=== PATIENT | female | born 1970 | race Hispanic/Latino ===

== ENCOUNTER → 2018-03-04 | Outpatient (CLI) | payer OTHER ==
[~2018-03-04] MED LIST: ADV250 IH; ALBU8.5H8 IH; BUSP10TA3 PO; FERR-82 PO; FLUT16H NASAL; LEVE1000 PO; LORA2TAB2 PO; METF10004 PO; MONT10TA24 PO; OMEP20TA25 PO; PRAV20TA4 PO; PREM625 PO; QUET150T PO; SENN-183 PO; SERT100T12 PO; TIOT18CA3 IH; TOPI50TA PO; TYL3 PO; VALS160T29 PO
== END | disposition home or self-care (01) ==
LOC: RAH 09:10
PROVIDERS: ATTEND Internal Medicine
DX: M19.012 Primary osteoarthritis, left shoulder (principal)
CPT/HCPCS: 73030

== ENCOUNTER → 2019-05-12 | Outpatient (CLI) | payer OTHER ==
[~2019-05-12] MED LIST changes: +ACET-48 PO; +ASPI-1012 PO; +BENZ-51 PO; +CANA300T PO; +CHOL100040 PO; +DILT120T PO; +GABA-529 PO; -LEVE1000 PO; +METF-446 PO; -METF10004 PO; -OMEP20TA25 PO; +OMEP40CA13 PO; +PHEN100C9 PO; -PREM625 PO; -QUET150T PO; +QUET200T29 PO; +TOPI100T37 PO; -TOPI50TA PO
== END | disposition home or self-care (01) ==
LOC: SHCH 14:02
PROVIDERS: ATTEND Internal Medicine Cardiovascular Disease
DX: I47.1 Supraventricular tachycardia (principal)
CPT/HCPCS: 93306

== ENCOUNTER → 2019-11-02 | Outpatient (CLI) | payer OTHER ==
[~2019-11-02] MED LIST changes: -ACET-48 PO; +ACET-49 PO; -MONT10TA24 PO; +MONT10TA26 PO
== END | disposition home or self-care (01) ==
LOC: RAH 07:24
PROVIDERS: ATTEND Surgery
DX: K76.0 Fatty (change of) liver, not elsewhere classified (principal); R10.9 Unspecified abdominal pain; K43.9 Ventral hernia without obstruction or gangrene
CPT/HCPCS: 76700

== ENCOUNTER 2020-05-03 06:18 | Day surgery (SDC) | payer OTHER ==
[2020-04-29 11:19] LABS: BASOPHILS % (AUTO) 0.3 % (0.0-5.0); EOSINOPHILS % (AUTO) 2.5 % (0.0-8.0); LYMPHOCYTES % (AUTO) 30.4 % (21.0-51.0); MEAN CORPUSCULAR HGB CONC 30.3 g/dL (32.0-36.0); MEAN CORPUSCULAR VOLUME 75.9 fL (79-99); MONOCYTES % (AUTO) 5.4 % (3.0-13.0); NEUTROPHILS % (AUTO) 61.1 % (40.0-77.0); PLATELET COUNT (AUTO) 317 K/uL (130-400); RED BLOOD CELL COUNT(AUTO) 4.48 MIL/uL (4.00-5.50); RED CELL DISTRIBUTION WIDTH 16.1 % (11.0-15.5); WHITE BLOOD COUNT (AUTO) 6.3 K/uL (4.8-10.8)
[2020-04-29 11:21] LABS: CREATININE 0.6 mg/dL (0.5-1.5); POTASSIUM 4.2 mmol/L (3.5-5.1)
[2020-04-29 15:20] VITALS: BP 147/66
[2020-05-03] VITALS (15 sets, daily range): BP systolic 93–116; BP diastolic 49–64
[~2020-05-03] VITALS: Ht 149.9 cm; Wt 63.7 kg
[~2020-05-03 06:18] MED LIST changes: -BENZ-51 PO; -BUSP10TA3 PO; +BUSP5TAB3 PO; +CEFAZOLIN SODIUM 1 GM VIAL IVP SCH; +CETI10TA57 PO; -CHOL100040 PO; -DILT120T PO; +DILT180C89 PO; -FERR-82 PO; -GABA-529 PO; +LACT10SO62 PO; -LORA2TAB2 PO; +MAGNESIUM PO; +METO-408 PO; -MONT10TA26 PO; +PHEN100C23 PO; -PHEN100C9 PO; -PRAV20TA4 PO; +PRAV40TA3 PO; +QUET100T33 PO; -QUET200T29 PO; -SENN-183 PO; -SERT100T12 PO; +SIME80TA12 PO; +SODIUM CHLORIDE 0.9% 500ML 500 ML IV SCH; -TIOT18CA3 IH; -TOPI100T37 PO; +TOPI200T16 PO; -TYL3 PO
[2020-05-03] MEDS ORDERED: SODIUM CHLORIDE 0.9% 1000ML 1,000 ML IV ONE (07:30)
[2020-05-03] MEDS ORDERED: METO-408 PO (07:39)
[2020-05-03] MEDS ORDERED: FENTANYL CITRATE PF 50 MCG/1 ML 2ML VIAL ONE (07:56)
[2020-05-03] MEDS ORDERED: SUCCINYLCHOLINE 200MG/10ML SYR ONE (07:56)
[2020-05-03] MEDS ORDERED: PROPOFOL 10 MG/ML 20ML VIAL IV ONE (07:56)
[2020-05-03] MEDS ORDERED: MIDAZOLAM HCL 1 MG/ML 2ML VIAL ONE (07:56)
[2020-05-03] MEDS ORDERED: LIDOCAINE PF 2% 5ML ABBOJECT ONE (07:56)
[2020-05-03] MEDS ORDERED: ROCURONIUM 10MG/1ML SYR 10 MG/ML ML ONE (08:06)
[2020-05-03] MEDS ORDERED: PHENYLEPHRINE HCL 10 MG/ML 1ML VIAL IV ONE (08:12)
[2020-05-03] MEDS ORDERED: GLYCOPYRROLATE 1 MG/5 ML SYRINGE ONE (08:13)
[2020-05-03] MEDS ORDERED: NEOSTIGMINE 5MG/5ML SYR IV ONE (08:14)
[2020-05-03] MEDS ORDERED: ONDANSETRON HCL 4 MG/2 ML VIAL ONE (08:14)
[2020-05-03] MEDS ORDERED: EPHEDRINE SULFATE 50 MG/ML AMPULE ONE (08:18)
[2020-05-03] MEDS ORDERED: MEPERIDINE-PF 25 MG/ML SYG ONE ×2 (09:12→09:24)
== END 2020-05-03 11:06 | disposition home or self-care (01) ==
LOC: DAH 06:18
PROVIDERS: ATTEND Surgery
DX: S31.109A Unspecified open wound of abdominal wall, unspecified quadrant without penetration into peritoneal cavity, initial encounter (principal); J45.909 Unspecified asthma, uncomplicated; G47.30 Sleep apnea, unspecified; I10 Essential (primary) hypertension; E78.5 Hyperlipidemia, unspecified; K21.9 Gastro-esophageal reflux disease without esophagitis; E11.9 Type 2 diabetes mellitus without complications; F32.9 Major depressive disorder, single episode, unspecified; Z98.890 Other specified postprocedural states; X58.XXXA Exposure to other specified factors, initial encounter; Y93.89 Activity, other specified; Y92.89 Other specified places as the place of occurrence of the external cause; Y99.8 Other external cause status
CPT/HCPCS: 10061; 36415; 80048; 82948; 85025; A4215; A4221; A4222; A4223; A4452; A4663; A4930; C9803; J0330; J0690; J2001; J2175 ×2; J2250; J2370; J2405; J2704; J2710; J3010; J3490 ×2; J7030 ×2; U0003

== ENCOUNTER → 2021-01-06 | Outpatient (CLI) | payer OTHER ==
[~2021-01-06] MED LIST changes: -CEFAZOLIN SODIUM 1 GM VIAL IVP SCH; -SODIUM CHLORIDE 0.9% 500ML 500 ML IV SCH
== END | disposition home or self-care (01) ==
LOC: RAH 09:17
PROVIDERS: ATTEND Internal Medicine
DX: M25.561 Pain in right knee (principal); M79.89 Other specified soft tissue disorders; M25.461 Effusion, right knee
CPT/HCPCS: 73560

== ENCOUNTER → 2021-01-16 | Outpatient (CLI) | payer OTHER | END | disposition home or self-care (01) | LOC: RAH 13:20 | PROVIDERS: ATTEND Orthopaedic Surgery | DX: M65.261 Calcific tendinitis, right lower leg (principal); M25.461 Effusion, right knee; Z96.651 Presence of right artificial knee joint | CPT/HCPCS: 73700 ==

== ENCOUNTER 2021-02-24 06:40 | Day surgery (SDC) | payer OTHER ==
[2021-02-20 08:50] LABS: BASOPHILS % (AUTO) 0.3 % (0.0-5.0); EOSINOPHILS % (AUTO) 2.3 % (0.0-8.0); HEMATOCRIT 27.4 % (36-48); LYMPHOCYTES % (AUTO) 30.7 % (21.0-51.0); MEAN CORPUSCULAR HEMOGLOBIN 28.4 pg (27.0-33.0); MEAN CORPUSCULAR HGB CONC 29.9 g/dL (32.0-36.0); MEAN CORPUSCULAR VOLUME 94.8 fL (79-99); MONOCYTES % (AUTO) 4.5 % (3.0-13.0); NEUTROPHILS % (AUTO) 61.6 % (40.0-77.0); PLATELET COUNT (AUTO) 410 K/uL (130-400); RED BLOOD CELL COUNT(AUTO) 2.89 MIL/uL (4.00-5.50); RED CELL DISTRIBUTION WIDTH 15.2 % (11.0-15.5); WHITE BLOOD COUNT (AUTO) 6.9 K/uL (4.8-10.8)
[2021-02-20 09:01] LABS: CREATININE 0.7 mg/dL (0.5-1.5)
[2021-02-20 11:11] VITALS: BP 97/54
[~2021-02-24] VITALS: Ht 149.9 cm; Wt 63.1 kg
[2021-02-24] VITALS (16 sets, daily range): BP systolic 89–123; BP diastolic 44–62
[~2021-02-24 06:40] MED LIST changes: +CEFAZOLIN SODIUM 1 GM VIAL IVP SCH; -CETI10TA57 PO; -DILT180C89 PO; +FERS325 PO; -LACT10SO62 PO; -MAGNESIUM PO; -OMEP40CA13 PO; +OMEP40CA21 PO; -QUET100T33 PO; +SERT-438 PO; +SUCR1TAB2 PO; +TOPI100T37 PO; -TOPI200T16 PO
[2021-02-24] MEDS ORDERED: NACL 0.9% 1000ML 1,000 ML IV ONE (06:54)
[2021-02-24] MEDS ORDERED: DEXAMETHASONE SOD PHOSPHATE 10MG/ML 1ML VIAL ONE (07:18)
[2021-02-24] MEDS ORDERED: LIDOCAINE PF 100MG/5ML (2%) SYRINGE 5ML ONE ×2 (07:18→09:37)
[2021-02-24] MEDS ORDERED: SUCCINYLCHOLINE CHLORIDE 20 MG/ML 10 ML VIAL ONE (07:18)
[2021-02-24] MEDS ORDERED: MIDAZOLAM HCL 1 MG/ML 2ML VIAL ONE ×2 (07:19→08:50)
[2021-02-24] MEDS ORDERED: ROCURONIUM 10MG/1ML SYR 10 MG/ML ML ONE (07:19)
[2021-02-24] MEDS ORDERED: PROPOFOL 10 MG/ML 20ML VIAL IV ONE (07:19)
[2021-02-24] MEDS ORDERED: ONDANSETRON 4MG INJ ONE (07:19)
[2021-02-24] MEDS ORDERED: NEOSTIGMINE 5MG/5ML SYR IV ONE (07:19)
[2021-02-24] MEDS ORDERED: GLYCOPYRROLATE 1 MG/5 ML SYRINGE ONE (07:19)
[2021-02-24] MEDS ORDERED: FENTANYL CITRATE PF 50 MCG/1 ML 2ML VIAL ONE (07:20)
[2021-02-24] MEDS ORDERED: EPHEDRINE SULFATE 50 MG/ML AMPULE ONE (09:07)
[2021-02-24] MEDS ORDERED: ACET1TAB25 PO (10:14)
[2021-02-24] MEDS ORDERED: CEPH500B PO (10:14)
[2021-02-24] MEDS ORDERED: MEPERIDINE-PF 25 MG/ML SYG ONE (10:33)
== END 2021-02-24 11:50 | disposition home or self-care (01) ==
LOC: DAH 06:40
PROVIDERS: ATTEND Orthopaedic Surgery
DX: M65.861 Other synovitis and tenosynovitis, right lower leg (principal); Z20.822 Contact with and (suspected) exposure to COVID-19; M23.41 Loose body in knee, right knee; G89.29 Other chronic pain; I10 Essential (primary) hypertension; F32.9 Major depressive disorder, single episode, unspecified; D64.9 Anemia, unspecified; E11.9 Type 2 diabetes mellitus without complications; J45.909 Unspecified asthma, uncomplicated; K21.9 Gastro-esophageal reflux disease without esophagitis; E78.5 Hyperlipidemia, unspecified; F41.9 Anxiety disorder, unspecified; Z86.73 Personal history of transient ischemic attack (TIA), and cerebral infarction without residual deficits; Z96.651 Presence of right artificial knee joint; Z79.899 Other long term (current) drug therapy; Z90.49 Acquired absence of other specified parts of digestive tract; Z98.890 Other specified postprocedural states; Z82.49 Family history of ischemic heart disease and other diseases of the circulatory system
CPT/HCPCS: 29876; 36415; 80048; 82948 ×2; 85025; 87635; A4215; A4221; A4222; A4223; A4606; A4649 ×2; A4663; A4930; A6223; C9803; J0330; J0690; J1100; J2001 ×2; J2175; J2250 ×2; J2405; J2704; J2710; J3010; J3490 ×2; J7030; J7120

== ENCOUNTER → 2022-01-16 | Outpatient (CLI) | payer OTHER ==
[~2022-01-16] MED LIST changes: +ACET-2079 PO; -CEFAZOLIN SODIUM 1 GM VIAL IVP SCH; +CEPH500B PO
== END | disposition home or self-care (01) ==
LOC: RAH 11:08
PROVIDERS: ATTEND Internal Medicine
DX: M77.31 Calcaneal spur, right foot (principal); M79.674 Pain in right toe(s)
CPT/HCPCS: 73630

== ENCOUNTER → 2022-06-08 | Outpatient (CLI) | payer OTHER | END | disposition home or self-care (01) | LOC: RAH 07:34 | PROVIDERS: ATTEND Internal Medicine Gastroenterology | DX: K76.0 Fatty (change of) liver, not elsewhere classified (principal); R10.13 Epigastric pain; Z90.49 Acquired absence of other specified parts of digestive tract | CPT/HCPCS: 76700 ==

== ENCOUNTER → 2022-10-01 | Outpatient (CLI) | payer OTHER | END | disposition home or self-care (01) | LOC: RAH 10:50 | PROVIDERS: ATTEND Internal Medicine | DX: M79.631 Pain in right forearm (principal); M19.031 Primary osteoarthritis, right wrist; M19.041 Primary osteoarthritis, right hand; M79.641 Pain in right hand; Z68.27 Body mass index [BMI] 27.0-27.9, adult; M25.531 Pain in right wrist | CPT/HCPCS: 73090; 73110; 73130 ==

== ENCOUNTER → 2022-10-14 | Outpatient (CLI) | payer OTHER ==
[~2022-10-14] MED LIST changes: +ALBUTEROL 0.083% 2.5 MG/3 ML INH IH ONE
== END | disposition home or self-care (01) ==
LOC: RESP 10:25
PROVIDERS: ATTEND Internal Medicine
DX: R06.00 Dyspnea, unspecified (principal)
CPT/HCPCS: 94060; 94727; 94729

== ENCOUNTER → 2023-01-20 | Outpatient (CLI) | payer OTHER ==
[~2023-01-20] MED LIST changes: -ALBUTEROL 0.083% 2.5 MG/3 ML INH IH ONE
== END | disposition home or self-care (01) ==
LOC: RAH 08:40
PROVIDERS: ATTEND Internal Medicine Gastroenterology
DX: K76.0 Fatty (change of) liver, not elsewhere classified (principal); R10.13 Epigastric pain; R93.3 Abnormal findings on diagnostic imaging of other parts of digestive tract
CPT/HCPCS: 78264; 76700; A9541

== ENCOUNTER → 2023-02-23 | Outpatient (CLI) | payer OTHER | END | disposition home or self-care (01) | LOC: RAH 09:30 | PROVIDERS: ATTEND Internal Medicine | DX: M54.50 Low back pain, unspecified (principal); M25.551 Pain in right hip | CPT/HCPCS: 72100; 73502 ==

== ENCOUNTER → 2023-04-22 | Outpatient (CLI) | payer OTHER | END | disposition home or self-care (01) | LOC: SHCH 08:41 | PROVIDERS: ATTEND Internal Medicine Cardiovascular Disease | DX: I87.2 Venous insufficiency (chronic) (peripheral) (principal) | CPT/HCPCS: 93970 ==

== ENCOUNTER → 2023-05-26 | Outpatient (CLI) | payer OTHER | END | disposition home or self-care (01) | LOC: SHCH 14:47 | PROVIDERS: ATTEND Internal Medicine Cardiovascular Disease | DX: I73.9 Peripheral vascular disease, unspecified (principal) | CPT/HCPCS: 93925 ==

== ENCOUNTER → 2023-07-26 | Outpatient (CLI) | payer OTHER ==
[2023-07-26 12:19] LABS: BASOPHILS # (AUTO) 0.03 K/uL (0.00-0.20); BASOPHILS % (AUTO) 0.5 % (0.0-5.0); EOSINOPHILS # (AUTO) 0.08 K/uL (0.00-0.70); EOSINOPHILS % (AUTO) 1.4 % (0.0-8.0); HEMATOCRIT 40.3 % (36-48); IMMATURE GRANULOCYTE ABSOLUTE 0.02 K/uL (0-1); LYMPHOCYTES # (AUTO) 1.7 K/uL (1.0-4.8); LYMPHOCYTES % (AUTO) 29.8 % (21.0-51.0); MEAN CORPUSCULAR HEMOGLOBIN 31.5 pg (27.0-33.0); MEAN CORPUSCULAR HGB CONC 33.3 g/dL (32.0-36.0); MEAN CORPUSCULAR VOLUME 94.6 fL (79-99); MONOCYTES # (AUTO) 0.3 K/uL (0.1-1.0); NEUTROPHILS # (AUTO) 3.4 K/uL (1.8-7.7); NEUTROPHILS % (AUTO) 61.9 % (40.0-77.0); PLATELET COUNT (AUTO) 247 K/uL (130-400); RED BLOOD CELL COUNT(AUTO) 4.26 MIL/uL (4.00-5.50); RED CELL DISTRIBUTION WIDTH 12.9 % (11.0-15.5); WHITE BLOOD COUNT (AUTO) 5.5 K/uL (4.8-10.8)
[2023-07-26 12:28] LABS: INR < 0.93 (0.85-1.15); PROTHROMBIN TIME 10.8 SEC (9.6-11.6)
[2023-07-26 12:29] LABS: PARTIAL THROMBOPLASTIN TIME 27.8 SEC (26.3-35.5)
[2023-07-26 12:35] LABS: CREATININE 0.6 mg/dL (0.5-1.5)
== END | disposition home or self-care (01) ==
LOC: LAB 09:24
PROVIDERS: ATTEND Internal Medicine Cardiovascular Disease
DX: I87.1 Compression of vein (principal); I10 Essential (primary) hypertension; Z86.2 Personal history of diseases of the blood and blood-forming organs and certain disorders involving the immune mechanism
CPT/HCPCS: 36415; 80048; 85025; 85610; 85730

== ENCOUNTER → 2023-09-02 | Outpatient (CLI) | payer OTHER | END | disposition home or self-care (01) | LOC: LAB 12:06 | PROVIDERS: ATTEND Clinical Nurse Specialist Family Health | DX: R10.13 Epigastric pain (principal); R10.9 Unspecified abdominal pain | CPT/HCPCS: 74018 ==

== ENCOUNTER → 2023-09-22 | Outpatient (CLI) | payer OTHER | END | disposition home or self-care (01) | LOC: RAH 10:51 | PROVIDERS: ATTEND Internal Medicine | DX: M47.814 Spondylosis without myelopathy or radiculopathy, thoracic region (principal); M54.6 Pain in thoracic spine | CPT/HCPCS: 72070 ==

== ENCOUNTER → 2023-10-28 | Outpatient (CLI) | payer OTHER ==
[2023-10-28 10:53] LABS: BASOPHILS # (AUTO) 0.02 K/uL (0.00-0.20); BASOPHILS % (AUTO) 0.3 % (0.0-5.0); EOSINOPHILS # (AUTO) 0.14 K/uL (0.00-0.70); EOSINOPHILS % (AUTO) 2.4 % (0.0-8.0); HEMATOCRIT 38.9 % (36-48); IMMATURE GRANULOCYTE ABSOLUTE 0.02 K/uL (0-1); LYMPHOCYTES # (AUTO) 1.9 K/uL (1.0-4.8); LYMPHOCYTES % (AUTO) 32.2 % (21.0-51.0); MEAN CORPUSCULAR HEMOGLOBIN 30.7 pg (27.0-33.0); MEAN CORPUSCULAR HGB CONC 32.9 g/dL (32.0-36.0); MEAN CORPUSCULAR VOLUME 93.3 fL (79-99); MONOCYTES # (AUTO) 0.4 K/uL (0.1-1.0); MONOCYTES % (AUTO) 7.2 % (3.0-13.0); NEUTROPHILS # (AUTO) 3.4 K/uL (1.8-7.7); NEUTROPHILS % (AUTO) 57.6 % (40.0-77.0); PLATELET COUNT (AUTO) 272 K/uL (130-400); RED BLOOD CELL COUNT(AUTO) 4.17 MIL/uL (4.00-5.50); RED CELL DISTRIBUTION WIDTH 13.6 % (11.0-15.5); WHITE BLOOD COUNT (AUTO) 5.8 K/uL (4.8-10.8)
[2023-10-28 11:02] LABS: INR 0.94 (0.85-1.15); PROTHROMBIN TIME 10.9 SEC (9.6-11.6)
[2023-10-28 11:03] LABS: PARTIAL THROMBOPLASTIN TIME 29.8 SEC (26.3-35.5)
[2023-10-28 11:06] LABS: ALBUMIN 3.5 g/dL (3.5-5.0); BILIRUBIN,TOTAL 0.4 mg/dL (0.2-1.0); CREATININE 0.6 mg/dL (0.5-1.5); POTASSIUM 3.8 mmol/L (3.5-5.1); TOTAL PROTEIN, SERUM 7.1 g/dL (6.0-8.3)
== END | disposition home or self-care (01) ==
LOC: LAB 10:23
DX: S20.219D Contusion of unspecified front wall of thorax, subsequent encounter (principal); Z01.818 Encounter for other preprocedural examination; I10 Essential (primary) hypertension; Z86.2 Personal history of diseases of the blood and blood-forming organs and certain disorders involving the immune mechanism
CPT/HCPCS: 36415; 71046; 80053; 80061; 85025; 85610; 85730

== ENCOUNTER → 2024-05-02 | Outpatient (CLI) | payer OTHER | END | disposition home or self-care (01) | LOC: SHCH 14:48 | PROVIDERS: ATTEND Internal Medicine Cardiovascular Disease | DX: I87.2 Venous insufficiency (chronic) (peripheral) (principal); I87.1 Compression of vein | CPT/HCPCS: 93970 ==

== ENCOUNTER → 2024-11-17 | Outpatient (CLI) | payer OTHER ==
[2024-11-17] MEDS: REGADENOSON 0.4 MG/5 ML PF SYG IVP ONE (14:36)
--- NOTE | 2024-11-20 13:47 | HMCSR ---
APPROVED REPORT Height: 4 ft 11in Weight: 124 lbs TEST INDICATIONS Dyspnea The imaging protocol used to acquire images was Rest Tc-99m/stress Tc-99m 1 day Consent: The procedure was explained and understood by the patient. Informerd consent was witnessed Chandan Crespo RN First, low dose rest was performed then high dose stress. RESTING DATA: The resting ekg shows: NSR Rest SPECT myocardial perfusion imaging was performed in supine position 71 minutes following the int ravenous injection of 10.4 mCi of Tc-99 Sestamibi. Time of rest injection: 09:39: Date: 11/17/2024 Time of rest imagin:52: Date: 11/17/2024 PHARMACOLOGIC STRESS: Pharmacologic stress test was performed by injecting regadenoson 0.4 mg IV push followed by the intra venous injection of 29 mCi of Tc-99 Sestamibi. Time of stress injection: 11:24: Date: 11/17/2024 Time of stress imagin:43: Date: 11/17/2024 Heart Rate at time of stress injection: 49 bpm. Gated Stress SPECT was performed 79 minutes after stress injection. The images were gated to evaluate regional wall motion and calculate left ventricular ejection fracti on. STRESS DETAILS Reason for Termination: Infusion complete Stress Symptoms: No chest pain or symptoms Max HR Achieved: 64 bpm % of APMHR Achieved: 39 Max Blood Pressure: 123/60 mmHg Stress ECG: NSR Study quality was good. Lung uptake was Normal. Artifact: No artifact LEFT VENTRICLE The left ventricular ejection fraction was calculated to be >65%.TID = 0.79. LV PERFUSION Stress Perfusion Normal IMPRESSION Normal pharmacologic nuclear stress test. Conclusion Normal [id number] stress test with an LVEF >65% and a TID of 0.79 No reversible ischemia observed.
== END | disposition home or self-care (01) ==
LOC: SHCH 09:08
PROVIDERS: ATTEND Internal Medicine Cardiovascular Disease
DX: R06.00 Dyspnea, unspecified (principal); I10 Essential (primary) hypertension; R00.2 Palpitations; E78.5 Hyperlipidemia, unspecified; I87.1 Compression of vein; D64.9 Anemia, unspecified; Z95.820 Peripheral vascular angioplasty status with implants and grafts; Z79.899 Other long term (current) drug therapy
CPT/HCPCS: 78452; 93017; J2785; A9500 ×2

== ENCOUNTER → 2025-04-02 | Outpatient (CLI) | payer OTHER ==
[~2025-04-02] MED LIST changes: -ACET-2079 PO; -ACET-49 PO; +ACET-66 PO; -ADV250 IH; -ALBU8.5H8 IH; +ASPI-1005 PO; -ASPI-1012 PO; +ATOR10 PO; -CANA300T PO; -CEPH500B PO; +CLOP-31 PO; +DICY20TA3 PO; +ESOM40CA66 PO; -FERS325 PO; -FLUT16H NASAL; +FLUT1BLS3 IH; +IRON1CAP32 PO; +LEVE100023 PO; -METF-446 PO; -METO-408 PO; -OMEP40CA21 PO; -PHEN100C23 PO; -PRAV40TA3 PO; +PRAV40TA62 PO; +QUET100T34 PO; -SIME80TA12 PO; -TOPI100T37 PO; +TOPI200T68 PO; -VALS160T29 PO
[2025-04-02 11:01] LABS: CREATININE 0.6 mg/dL (0.5-1.0); GLOMERULAR FILTR. RATE CALC 105.0 mL/min (>90); UREA NITROGEN, BLOOD 14.0 mg/dL (7-18)
== END | disposition home or self-care (01) ==
LOC: LAB 09:59
PROVIDERS: ATTEND Surgery
DX: Z45.42 Encounter for adjustment and management of neurostimulator (principal)
CPT/HCPCS: 36415; 82565; 84520

== ENCOUNTER → 2025-04-04 | Outpatient (CLI) | payer OTHER ==
[~2025-04-04] MED LIST changes: +IOHEXOL 350 MG/ML 100ML INFUS..BTL IV ONE
--- NOTE | 2025-04-04 13:03 | HMCIMG ---
EXAM: CT Abdomen and Pelvis with Intravenous Contrast CLINICAL HISTORY: 54-year-old female with encounter for adjustment and management of neurostimulator. TECHNIQUE: Axial computed tomography images of the abdomen and pelvis with intravenous contrast. Dose reduction technique was used including one or more of the following: automated exposure control, adjustment of mA and kV according to patient size, and/or iterative reconstruction. CONTRAST: 99 mL of IV contrast COMPARISON: CT Abdomen and Pelvis 12/22/2011 FINDINGS: LUNG BASES: No basilar airspace consolidation or pleural effusion. LIVER: Unremarkable. GALLBLADDER AND BILE DUCTS: Cholecystectomy clips. PANCREAS: Unremarkable. SPLEEN: Unremarkable. ADRENAL GLANDS: Unremarkable. KIDNEYS, URETERS, AND BLADDER: Delayed images demonstrate symmetric excretion of contrast by both kidneys. No hydronephrosis or nephrolithiasis. No ureteral or bladder calculi. STOMACH AND BOWEL: Oral contrast in the stomach and small bowel. Postsurgical changes of the left colon are seen. No obstruction. No wall thickening. No CT evidence of colitis or acute diverticulitis. APPENDIX: No CT evidence for appendicitis. PERITONEUM: No free fluid. No free air. LYMPH NODES: No lymphadenopathy. REPRODUCTIVE: Unremarkable as visualized. VASCULATURE: No aortic aneurysm. There are bilateral common iliac vein stents seen. ABDOMINAL WALL AND SOFT TISSUES: Electronic device projected in the right anterior abdominal wall. BONES: Mild degenerative changes lumbar spine. No fracture or suspicious osseous abnormality. IMPRESSION: 1. No acute findings. 2. There are multiple chronic findings similar to prior CT Abdomen and Pelvis 12/22/2011 /[place]
== END | disposition home or self-care (01) ==
LOC: RAH 08:51
PROVIDERS: ATTEND Surgery
DX: Z45.42 Encounter for adjustment and management of neurostimulator (principal); M47.816 Spondylosis without myelopathy or radiculopathy, lumbar region; Z96.82 Presence of neurostimulator
CPT/HCPCS: 74177; Q9967

== ENCOUNTER 2025-04-28 13:59 | Emergency (ER) | payer OTHER ==
[~2025-04-28] VITALS: Ht 149.9 cm; Wt 59.0 kg
[~2025-04-28 13:59] MED LIST changes: -IOHEXOL 350 MG/ML 100ML INFUS..BTL IV ONE
[2025-04-28 14:02] VITALS: TEMP 97.8
[2025-04-28 14:26] LABS: IMMATURE GRANULOCYTE ABSOLUTE 0.02 K/uL (0-1); NUCLEATED RED BLOOD CELLS 0.0 % (0.0-0.19); PLATELET COUNT (AUTO) 210 K/uL (130-400); RED BLOOD CELL COUNT(AUTO) 4.16 MIL/uL (4.00-5.50); RED CELL DISTRIBUTION WIDTH 13.2 % (11.0-15.5); WHITE BLOOD COUNT (AUTO) 5.4 K/uL (4.8-10.8)
[2025-04-28 14:35] LABS: CREATININE 0.6 mg/dL (0.5-1.0); GLOMERULAR FILTR. RATE CALC 105.0 mL/min (>90); GLUCOSE,RANDOM 158.0 mg/dL (70-105); SODIUM SERUM 142.0 mmol/L (136-145); UREA NITROGEN, BLOOD 16.0 mg/dL (7-18)
[2025-04-28] MEDS ORDERED: IOHEXOL 350 MG/ML 100ML INFUS..BTL IV ONE (14:37)
--- NOTE | 2025-04-28 14:39 | HMCIMG ---
EXAM: CT Head Without IV contrast. CLINICAL HISTORY: CODE STROKE TECHNIQUE: Axial computed tomography images of the head/brain without intravenous contrast. COMPARISON: 03/11/2015 FINDINGS: BRAIN: No evidence of acute hemorrhage. No mass lesion. No CT evidence for acute territorial infarct. No midline shift or extra-axial collections. VENTRICLES: No hydrocephalus. ORBITS: The orbits are unremarkable. SINUSES AND MASTOIDS: The paranasal sinuses and mastoid air cells are clear. BONES: No fracture. SOFT TISSUES: Unremarkable. IMPRESSION: No acute intracranial abnormality. /[place]
[2025-04-28 14:41] LABS: CREATINE KINASE, TOTAL 56.0 U/L (21-232); LDL DIRECT 44.0 mg/dL (0-99)
[2025-04-28 14:53] LABS: INR 0.98 (0.85-1.15)
--- NOTE | 2025-04-28 15:15 | NUR ---
TRANSFER REQUEST TO [facility] [place] FOR NEUROLOGY PER DR LEATHA ADAMS RN
--- NOTE | 2025-04-28 15:15 | EKG ---
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
--- NOTE | 2025-04-28 15:16 | CONS ---
CONSULT NOTE: [facility] Note # Demographics Consult Type: Acute Stroke Level 1 (0-4.5 hrs) Patient Location: Emergency Room First Name: ERWIN APONTE Last Name: AMBER Date of : 1970 Age: 55 Gender: Female Facility: [facility] Time of Initial Page (Central Time): 04/28/2025 15:00 First Contact with Site (Central Time): 04/28/2025 15:00 # HPI History: 55yof with seizures (on Keppra 1000mg BID, topamax 100mg BID)who p/w R sided shaking and seizure like activity. She was having some issues even earlier in the day, she felt that something felt "off" with her R side when she woke up, but then it got significantly worse an 1.5 hour ago. Possibly even had some symptoms yesterday. at bedside says this is typical for her seizure. Last Known Normal: - I have collected independent history specific to time last normal or last kno wn well. We have collaborated with the provider and at this time, we have the most current timeline with the information that is available. Possibly sometime yesterday # Scores Time of exam and NIHSS (Central Time): 04/28/2025 15:03 Level of Consciousness 1a: [0] = Alert; keenly responsive LOC Questions 1b: [0] = Answers both questions correctly LOC Commands 1c: [0] = Performs both tasks correctly Best Gaze 2: [0] = Normal Visual 3: [0] = No visual loss Facial Palsy 4: [0] = Normal symmetrical movements Motor Arm Left 5a: [0] = No drift Motor Arm Right 5b: [0] = No drift Motor Leg Left 6a: [0] = No drift Motor Leg Right 6b: [0] = No drift Limb Ataxia 7: [0] = Absent Sensory 8: [1] = Htse-nj-cgkhsmon sensory loss Best Language 9: [0] = No aphasia Dysarthria 10: [1] = Hzuq-fj-yzbzeygi dysarthria Extinction and Inattention 11: [0] = No abnormality NIHSS Total: 2 # Data Time Head CT personally read by me (Central Time): 04/28/2025 15:[address]: - no bleed - per radiologist read Time CTA personally reviewed by me (Central Time): 04/28/2025 15:06 CTA Head: - no large vessel occlusion - preliminarily reviewed by me, please refer to radiology read for official reading # Assessment Impression: - Seizure Episodes at bedside do not seem typical for seizure, recommend further workup as below, continue home seizure medications # Plan Thrombolytic/Intervention: NOT IV Thrombolysis or IA Intervention candidate Thrombolytic Exclusion: > 4.5 hours Intraarterial Exclusion: - clinical exam not consistent with presence of large vessel occlusion (LVO), can reconsider if LVO found on vascular imaging Labs: - CBC - comprehensive metabolic panel - thiamine - ua - urine drug screen Full infectious and metabolic workup for AMS Imaging: (urgency: routine): - MRI Brain with AND without contrast If unable to get MRI would get repeat CTH in 24 hours Diagnostic Test: - EEG Medication: Continue home seizure medications Other: - If patient has any neurological deterioration please call me back immediately - seizure precautions - Please check serum drug levels as indicated (depakote, dilantin, tegretol) - Please check routine labs and studies to rule out infection or metabolic abnormality (CBC, BMP, LFTs, magnesium, UA, B-HCG, CXR) and treat as appropriate - Give 2 grams IV magnesium sulfate for serum magnesium <= 1.8, optimize other electrolytes - May consider brief course of Ativan as temporizing measure (1 mg BID x 2 days) if provoking factor such as infection, medication noncompliance, or metabolic abnormality is found - Avoid epileptogenic medications such as wellbutrin, cefepime, ultram, quinolones, and imipenum - Seizure precautions, including appropriate state law prohibiting driving, avoiding heights, tubs/swimming pools and standing over open flames # Logistics Attestation of consult completion: The patient is located at: [facility]. Facility staff participated in the visit. I performed this telemedicine visit from my offsite office utilizing interactive 2 way audio and visual telecommunication technology at the request of the onsite emergency room provider. Total time spent in telemedicine encounter: I spent 23 minutes reviewing clinical data and/or imaging, obtaining history, examining the patient, communicating with the onsite care team, and in preparation of this report. # Demographics First Name: ERWIN APONTE Last Name: AMBER Facility: [facility] ROCHELLE HOOKER MD Apr 28, 2025 15:16
--- NOTE | 2025-04-28 15:18 | ERN ---
General Chief Complaint: Stroke Symptoms Stated Complaint: STROKE SYMPTOMS Time Seen by MD: 14:03 History of Present Illness Initial Comments 55-year-old female history of hypertension, dyslipidemia, diabetes, previous stroke, seizure disorder, presents for neurologic symptoms. Patient reports that last night she felt that she was shaking and she felt that she could not speak well. Symptoms began sometime on 04/27/2025. This morning she said that she felt well, she met with a friend who said that she was acting normal, but at lunch she began shaking. She felt that her right leg did not work and she felt difficulty getting her words out. On arrival here she reports a right-sided vision loss as well as difficulty getting her words out and inability to move her right leg. She reports that her whole body was shaking except for her right leg which she could not move. She reports feeling generally weak. No recent fevers chills vomiting diarrhea dysuria. Allergies: Coded Allergies: No Known Drug Allergies (Unverified Allergy, Unknown, 04/23/20) Home Meds Active Scripts Clopidogrel Bisulfate (Plavix) 75 Mg Tablet, 75 MG PO DAILY for 30 Days, #30 TAB 1 Refill Prov:NBA AGUSTIN MD 12/01/24 Atorvastatin Calcium (LIPITOR) 10 Mg Tab, 10 MG PO HS for 30 Days, #30 TAB 1 Refill Prov:NBA AGUSTIN MD 12/01/24 Aspirin (ASPIRIN 81MG CHEW TAB) 81 Mg Tab.chew, 81 MG PO DAILY for 30 Days, #30 TAB.CHEW 1 Refill Prov:NBA AGUSTIN MD 12/01/24 Reported Medications Topiramate (Topiramate) 200 Mg Tablet, 1 TAB PO BID for 30 Days, #60 TAB 0 Refills 11/29/24 Pravastatin Sodium (Pravastatin Sodium) 40 Mg Tablet, 1 TAB PO HS for 30 Days, #30 TAB 0 Refills 11/29/24 Quetiapine Fumarate (Quetiapine Fumarate) 100 Mg Tablet, 1 TAB PO HS for 30 Days, #30 TAB 0 Refills 11/29/24 Sertraline HCl (Sertraline HCl) 25 Mg Tablet, 1 TAB PO HS for 30 Days, #30 TAB 0 Refills 11/29/24 Buspirone HCl (Buspirone HCl) 5 Mg Tablet, 1 TAB PO TID for 30 Days, #90 TAB 0 Refills 11/29/24 Fluticasone/Umeclidin/Vilanter (Trelegy Ellipta 100-62.5-25) 100-62.5 Blst.w.dev, 1 PUFF IH DAILY for 30 Days, #1 EACH 0 Refills 11/29/24 Iron Fum & P/FA/Vit B & C No.9 (Integra Plus Capsule) 125 Mg Iron-1 Mg Capsule, 1 CAP PO HS for 30 Days, #30 CAP 0 Refills 11/29/24 Sucralfate (Sucralfate) 1 Gram Tablet, 1 TAB PO QID for 30 Days, #120 TAB 0 Refills 11/29/24 Esomeprazole Magnesium (Esomeprazole Magnesium) 40 Mg Capsule.dr, 1 CAP PO DAILY for 30 Days, #30 CAP 0 Refills 11/29/24 Dicyclomine HCl (Dicyclomine HCl) 20 Mg Tablet, 1 TAB PO BID for irritable bowel symptoms for 30 Days, #60 TAB 0 Refills 11/29/24 Acetaminophen (Acetaminophen) 500 Mg Tablet, 1 TAB PO Q6HPRN PRN for pain or fever for 15 Days, #60 TAB 0 Refills 11/29/24 Levetiracetam (Levetiracetam) 1,000 Mg Tablet, 1 TAB PO BID for 30 Days, #60 TAB 0 Refills 11/29/24 Past Medical History Past Medical History: Asthma, Diabetes-Type II, GERD, High Cholesterol, Hypertension, Seizure Past Surgical History: None ROS Dictation CONSTITUTIONAL: No chills, no fever, no weakness, no diaphoresis, no malaise. HEAD/FACE: No signs of trauma. EENT: No eye pain, no blurred vision, no tearing, no double vision, no ear brenden n, no ear discharge, no nose pain, no nasal congestion, no throat pain, no throat swelling, no mouth pain. RESPIRATORY: No cough, no orthopnea, no SOB, no stridor, no wheezing. CARDIOVASCULAR: No chest pain, no edema, no palpitations, no syncope. GASTROINTESTINAL/ABDOMINAL: No abdominal pain, no constipation, no diarrhea, no nausea, no vomiting. GENITOURINARY: No abnormal discharge, no dysuria, no frequent urination, no hematuria. No complaints of pain in the genitals. MUSCULOSKELETAL: No back pain, no gout, no joint pain, no joint swelling, no muscle pain, no muscle stiffness, no neck pain. INTEGUMENTARY: No change in color, no change in hair/nails, no dryness, no lesion, no lumps, no rash. NEUROLOGICAL/PSYCH: No anxiety, not depressed, no emotional problem, no headache, no numbness, no pre-existing deficit, no history of seizures, no tremors, no weakness. HEMATOLOGIC/LYMPHATIC: Not anemic, no history of blood clots, no apparent bleeding, no bruising, glands not swollen. All Systems Negative, Except as Noted. Physical Exam Physical Exam Dictation VITAL SIGNS: Reviewed. GENERAL APPEARANCE: Alert, oriented x3, no acute distress, obese. HEAD AND FACE: Non-traumatic. EYES: PERRL, pink conjunctivas, eyelid no trauma, anterior chamber clear. EARS: Pinnas intact and no signs of trauma or erythema. Ear canals clear and no discharge. TMs no erythema. NOSE: No discharge, no bleeding. OROPHARYNX: Mouth normal, teeth no caries, tongue pink. Pharynx clear, no erythema. Tonsils no exudates, no abscesses noted. Mucous membrane moist. NECK: Supple, non-tender, no thyromegaly, no masses, no JVD, no bruits. BREAST: Deferred. CHEST: No tenderness, no crepitus, no paradoxical movement, no retractions. LUNGS: Clear, well-ventilated, symmetric, no rales, no wheezing, no rhonchi, no stridor, good breath sounds bilaterally. HEART: Regular rate, regular rhythm, no murmur, no gallops. VASCULAR: No peripheral edema. ABDOMEN: Soft, positive bowel sounds, nondistended, no guarding, nontender, no rebound, no masses no hepatomegaly, no splenomegaly, no Zarate's sign, no hernias. RECTAL: Deferred. GENITAL: Deferred. NEUROLOGICAL: Normal speech, gross motor function intact, gross sensory function intact. MUSCULOSKELETAL: Not moving her right leg EXTREMITIES: Nontender, full range of motion. SKIN: Color pink, dry, no turgor, no rash, no lacerations, no abrasions, no contusions. LYMPHATICS: Deferred. NIH STROKE SCALE: NIH STROKE SCALE Response (Comments) Value Level of Consciousness Alert 0 Ask patient month and their age Answers both correct 0 Command to open eyes, make fist and let go Obeys both correct 0 Best gaze (horizontal eye movement) Partial Gaze Palsy 1 Visual Field Testing Partial Hemianopia 1 Facial Paresis Partial Paralysis 2 Motor Function - Left Arm Normal 0 Motor Function - Right Arm Normal 0 Motor Function - Left Leg Normal 0 Motor Function - Right Leg Drift 1 Sensory-pin prick to arms, legs, trunk and face Mild to Moderate Decrease 1 Best Language (describe picture, name items and read) Mild to Mod. Aphasia 1 Dysarthria (read several words) Normal Articulation 0 Extinction and Inattention Normal 0 Total Results Laboratory and Microbiology Lab and Micro Result Laboratory Tests Test 04/28/25 14:14 04/28/25 14:15 White Blood Count 5.4 K/uL (4.8-10.8) Red Blood Count 4.16 MIL/uL (4.00-5.50) Hemoglobin 12.9 g/dL (12.0-16.0) Hematocrit 38.7 % (36-48) Mean Corpuscular Volume 93.0 fL (79-99) Mean Corpuscular Hemoglobin 31.0 pg (27.0-33.0) Mean Corpuscular Hemoglobin Concent 33.3 g/dL (32.0-36.0) Red Cell Distribution Width 13.2 % (11.0-15.5) Platelet Count 210 K/uL (130-400) Mean Platelet Volume 10.5 fL (7.5-10.5) Immature Granulocyte % (Auto) 0.4 % (0-1) Neutrophils (%) (Auto) 67.5 % (40.0-77.0) Lymphocytes (%) (Auto) 22.3 % (21.0-51.0) Monocytes (%) (Auto) 7.4 % (3.0-13.0) Eosinophils (%) (Auto) 2.0 % (0.0-8.0) Basophils (%) (Auto) 0.4 % (0.0-5.0) Neutrophils # (Auto) 3.7 K/uL (1.8-7.7) Lymphocytes # (Auto) 1.2 K/uL (1.0-4.8) Monocytes # (Auto) 0.4 K/uL (0.1-1.0) Eosinophils # (Auto) 0.11 K/uL (0.00-0.70) Basophils # (Auto) 0.02 K/uL (0.00-0.20) Absolute Immature Granulocyte (auto 0.02 K/uL (0-1) Nucleated Red Blood Cells 0.0 % (0.0-0.19) Prothrombin Time 10.4 SEC (9.6-11.6) Prothromb Time International Ratio 0.98 (0.85-1.15) Activated Partial Thromboplast Time 26.3 SEC (26.3-35.5) Sodium Level 142 mmol/L (136-145) Potassium Level 3.5 mmol/L (3.5-5.1) Chloride Level 108 mmol/L (101-111) Carbon Dioxide Level 25 mmol/L (21-32) Blood Urea Nitrogen 16 mg/dL (7-18) Creatinine 0.6 mg/dL (0.5-1.0) Glomerular Filtration Rate Calc 105 mL/min (>90) Random Glucose 158 mg/dL (70-105) H Total Calcium 8.2 mg/dL (8.5-10.1) L Total Creatine Kinase 56 U/L (21-232) Troponin I High Sensitivity 5 ng/L (4-50) LDL Cholesterol 44 mg/dL (0-99) Whole Blood Glucose 164 MG/DL (70-110) H MDM CC: Stroke-like symptoms Historian: Patient Comorbidities include hypertension, dyslipidemia, diabetes, previous CVA, seizure disorder Limitations by social determinants of health: None Differential diagnosis includes stroke, and Fco's paralysis, seizure, other neurologic disorder, psychiatric disorder, other. Initially patient comes in has a stroke alert. The onset of symptoms was initially unclear. NIHSS is 4, she has paresthesias, decreased vision to the right side, inability to move the right leg. The initial presentation/onset of symptoms shows unclear, but upon getting further information it appears that the patient had some symptoms last night, greater than 12 hours prior to arrival. Patient has not a good candidate for TN K due to the prolonged onset of symptoms greater than 4.5 hours. Patient taken to the CT scanner, CT head without contrast per my independent interpretation shows no obvious bleeding. CT angiograms of the head and neck showed no signs of acute large vessel occlusion. I discussed the case with the teleneurologist, we both agreed that the patient has not a good candidate for TNK. She recommends that the patient is admitted for an MRI versus repeat CT in 24 hours, and also recommends that the patient gets a 30 minute EEG. She will recommend aspirin and seizure medication. Patient was monitored in the ER. While she was here coordinating transfer for Neurology, patient's symptoms greatly improved. She was able to ambulate and walk. Her NIHSS of 0. I discussed the case with the hospitalist at [facility]. We will transfer her there because urology not available at this facility. Patient agrees with the plan. ED Course Orders Procedure Category Date Status Time Cbc With Differential LAB 04/28/25 Complete 14:15 Prothrombin Time With LAB 04/28/25 Complete INR 14:15 Partial LAB 04/28/25 Complete Thromboplastin Time 14:15 Ct Head/Brain W/O CT 04/28/25 Resulted Contrast 14:15 Chest 1vw RAD 04/28/25 Resulted 14:15 12 Lead Ekg Tracing- EKG 04/28/25 Complete Technical 14:15 Creatine Kinase, Total LAB 04/28/25 Complete 14:15 Ldl Direct LAB 04/28/25 Complete 14:15 Troponin I High LAB 04/28/25 Complete Sensitivity 14:15 Urinalysis Profile LAB 04/28/25 Logged 14:15 Bedside Glucose CPOE 04/28/25 Transmitted Fingerstick 14:15 Basic Metabolic Panel LAB 04/28/25 Complete 14:15 Ct Angio Head And Neck CT 04/28/25 Resulted 14:15 Iohexol (Omnipaque) PHA 04/28/25 Complete 14:37 Crary Prov. Neuro CONPHYSVC 04/28/25 Transmitted Consult 15:00 Levetiracetam 500 PHA 04/28/25 Complete Mg/5 [address] V (Keppra 5 15:30 Aspirin 325mg Tab PHA 04/28/25 Complete (Aspirin 325mg Tab) 15:30 Current Medications Medications (Trade) Dose Ordered Sig/Florencia Route PRN Reason Start Time Stop Time Status Last Admin Dose Admin Aspirin (Aspirin 325mg Tab) 325 mg ONCE ONCE PO 04/28/25 15:30 04/28/25 15:31 DC 04/28/25 15:57 Iohexol (Omnipaque) 35,000 mg STK-MED ONCE IV 04/28/25 14:37 04/28/25 14:38 DC Levetiracetam (kepPRA 500 MG/5 ML SD VIAL) 1,000 mg ONCE ONCE IV 04/28/25 15:30 04/28/25 15:31 DC 04/28/25 15:57 Vital Signs Date Time Temp Pulse Resp B/P (MAP) Pulse Ox O2 Delivery O2 Flow Rate FiO2 04/28/25 15:30 53 18 120/66 99 Room Air* 0 21 04/28/25 14:30 59 18 110/60 99 Room Air* 0 21 04/28/25 14:02 97.9 74 16 133/73 98 DX & DISP Disposition: Transfer Departure Impression: Primary Impression: Stroke-like symptom Critical Time: 30 minutes (Critical Care Procedure NoteAuthorized and Performed by: meTotal critical care time: Approximately 36 minutesDue to a high probabi lity of clinically significant, life threatening deterioration, the patient required my highest level of preparedness to intervene emergently and I personally spent this critical care time directly and personally managing the patient. This critical care time included obtaining a history; examining the patient; pulse oximetry; ordering and review of studies; arranging urgent treatment with development of a management plan; evaluation of patient's response to treatment; frequent reassessment; and, discussions with other providers.This critical care time was performed to assess and manage the high probability of imminent, life-threatening deterioration that could result in multi-organ failure. It was exclusive of separately billable procedures and treating other patients and teaching time.Please see MDM section and the rest of the note for further information on patient assessment and treatment.) Condition: Stable Referrals: ANTHONY HORVATH MD (PCP) NICOLE ZHANG DO Apr 28, 2025 15:18
--- NOTE | 2025-04-28 15:43 | HMCIMG ---
EXAM: CTA Head and Neck with and without Intravenous Contrast. CLINICAL HISTORY: stroke TECHNIQUE: Axial CTA images of the head and neck performed with and without intravenous contrast in the arterial phase. Coronal and sagittal reformatted images were generated and reviewed. 3-D reformatted images generated on an independent workstation were also reviewed. NASCET criteria were used in assessment of stenosis. CONTRAST: Contrast injected without incident. COMPARISON: None provided. FINDINGS: VASCULATURE:NECK: COMMON CAROTID ARTERIES No significant stenosis. No dissection or occlusion. EXTERNAL CAROTID ARTERIES Patent. INTERNAL CAROTID ARTERIES No stenosis by NASCET criteria. No dissection or occlusion. VERTEBRAL ARTERIES No significant stenosis. No dissection or occlusion. HEAD: ANTERIOR CEREBRAL ARTERIES No significant stenosis. No occlusion. No aneurysm. MIDDLE CEREBRAL ARTERIES No significant stenosis. No occlusion. No aneurysm. POSTERIOR CEREBRAL ARTERIES No significant stenosis. No occlusion. No aneurysm. BASILAR ARTERY No significant stenosis. No occlusion. No aneurysm. OTHER: SOFT TISSUES No acute finding. BONES No acute osseous abnormality. 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 Further evaluation with an upper extremity venous Doppler exam is recommended. IMPRESSION: 1. No acute intracranial or cervical vascular findings. 2. 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 /[place]
[2025-04-28] MEDS: ASPIRIN 325MG TAB PO ONE (15:57)
--- NOTE | 2025-04-28 16:05 | NUR ---
TRANSFER CALL PLACED TO [phone] SPOKE WITH JAKUB INTAKE NURSE INFORMATION PROVIDED AND WILL CALL BACK. ANGIE HINES
--- NOTE | 2025-04-28 16:52 | HMCIMG ---
EXAM: CR Chest, 1 View. CLINICAL HISTORY: stroke COMPARISON: None provided. FINDINGS: LUNGS: There is no mass, infiltrate, or acute pulmonary abnormality. PLEURAL SPACES: No pleural effusion or pneumothorax. MEDIASTINUM: The cardiomediastinal silhouette is within normal limits. BONES: No aggressive appearing osseous lesion seen. IMPRESSION: No acute cardiopulmonary pathology is evident. /[place]
--- NOTE | 2025-04-28 17:34 | NUR ---
TRANSFER, INTAKE NURSE RETURNED CALL WITH ACCEPTANCE UNDER ARLEY MIRZA MD TO [facility] ICU ROOM 1301 BED 1. PRIMARY NURSE TO CALL REPORT TO [phone] AND EMS WHEN READY. RK
[2025-04-28 17:48] VITALS: BP 120/56; PULSE 64; RESP 18; O2SAT 97
--- NOTE | 2025-04-28 18:11 | NUR ---
PT JUST LEFT FACILITY WITH [facility] TO BE TRANSPORTED TO [facility] [place].
--- NOTE | 2025-04-28 18:13 | NUR ---
REPORT GIVEN TO TOM CHARGE NURSE AT [facility] [place]
[2025-04-28 18:21] LABS: APPEARANCE,URINE CLEAR (CLEAR); GLUCOSE, URINE (UA) NEGATIVE (NEGATIVE); LEUKOCYTE ESTERASE ,URINE NEGATIVE Leu/uL (NEGATIVE); NITRATE,URINE NEGATIVE (NEGATIVE); OCCULT BLOOD,URINE NEGATIVE (NEGATIVE)
[2025-04-28 18:37] LABS: ADD UA MICROSCOPIC NO
== END 2025-04-28 18:15 | disposition short-term general hospital (02) ==
LOC: EDH 13:59
DX: H54.7 Unspecified visual loss (principal); G20.C Parkinsonism, unspecified; E11.9 Type 2 diabetes mellitus without complications; E78.00 Pure hypercholesterolemia, unspecified; G40.909 Epilepsy, unspecified, not intractable, without status epilepticus; I10 Essential (primary) hypertension; Z79.02 Long term (current) use of antithrombotics/antiplatelets; Z79.82 Long term (current) use of aspirin; Z79.899 Other long term (current) drug therapy; Z86.73 Personal history of transient ischemic attack (TIA), and cerebral infarction without residual deficits
CPT/HCPCS: 82550; 83721; 84484; 80048; 85025; 85610; 85730; 82948; 81003; 36415; 71045; 70450; 70496; 70498; 96365; 99291; 93005; J1953; Q9967

== ENCOUNTER → 2025-08-23 | Outpatient (CLI) | payer OTHER ==
--- NOTE | 2025-08-23 16:13 | HMCIMG ---
EXAM: CR Abdomen, 1 View. CLINICAL HISTORY: BLOATING, ABDOMINAL DISTENTION COMPARISON: Compared with the previous CT dated 04/04/2025 FINDINGS: BOWEL: Mild gaseous distention of the small and large bowel loops, measuring up to 4.2 cm, is slightly pronounced from the CT abdomen dated 04/04/2025. Air in the rectum and sigmoid colon noted. No definite airfluid levels are seen. PERITONEUM/SOFT TISSUES: No free air evident. No pathologically appearing calcification. BONES: No aggressively appearing osseous lesion was seen. Degenerative changes in the lumbar spine and bilateral hip joints. MISCELLANEOUS: An electronic device was projected in the right anterior abdominal wall with leads terminating in the epigastric region. The leads appear intact without kinking or discontinuity. Surgical phu in the right hypochondrium and left lumbar region. There are bilateral common iliac and external iliac vein stents seen. Elevation of the right hemidiaphragm or right pleural effusion. IMPRESSION: 1. No convincing radiographic evidence to suggest high-grade acute small bowel obstruction 2. Mild gaseous distention of small and large bowel loops. 3. Elevation of the right hemidiaphragm or right pleural effusion. A USG or chest radiograph is suggested for further evaluation. 4. An electronic device was projected in the right anterior abdominal wall, bilateral common iliac and external iliac vein stents with no complications. 5. Mild gaseous distention of the small and large bowel loops slightly increased from prior CT dated 04/04/2025. Clinical correlation is advised. Follow-up imaging is recommended if symptoms worsen. /[place]
== END ==
LOC: RAH 09:43
PROVIDERS: ATTEND Nurse Practitioner Family
DX: R93.5 Abnormal findings on diagnostic imaging of other abdominal regions, including retroperitoneum (principal); R14.0 Abdominal distension (gaseous)
CPT/HCPCS: 74018

== ENCOUNTER → 2025-08-24 | Outpatient (CLI) | payer OTHER ==
--- NOTE | 2025-08-24 17:09 | HMCIMG ---
EXAM: CR CHEST, 2 VIEWS CLINICAL HISTORY: ABNORMAL X-RAY OF ABDOMEN COMPARISON: Chest X ray October 28, 2023 TECHNIQUE: Frontal and lateral radiographs of the chest. FINDINGS: Lines/Devices: None. Lungs: Radiographically clear. No consolidation or ground-glass opacities are observed. There is no pleural effusion. There is no pneumothorax. Mediastinum and cardiovascular structures: The cardiac silhouette is not enlarged. The central airway and mediastinal contours are unremarkable. Bones and soft tissues: Unremarkable. IMPRESSION: 1. No evidence of acute cardiopulmonary abnormalities. 2. Compared to prior Chest X ray October 28, 2023, there is no significant interval change. /[place]
== END | disposition home or self-care (01) ==
LOC: RAH 15:09
PROVIDERS: ATTEND Nurse Practitioner Family
DX: R93.5 Abnormal findings on diagnostic imaging of other abdominal regions, including retroperitoneum (principal); R14.0 Abdominal distension (gaseous)
CPT/HCPCS: 71046